=== PATIENT | male | born 1985 | race Caucasian/White ===

== ENCOUNTER 2016-07-16 16:40 | Emergency (ER) | payer SELFPAY ==
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
[2016-07-16] MEDS: CLINDAMYCIN 150 MG CAP PO ONE (17:16)
[2016-07-16] MEDS: Diph,Pert(Acell),Tet Vac 0.5 ML SYR IM ONE (17:17)
== END 2016-07-16 17:36 | disposition home or self-care (01) ==
LOC: ER 16:40
DX: S60.551A Superficial foreign body of right hand, initial encounter (principal); W45.8XXA Other foreign body or object entering through skin, initial encounter; Y92.828 Other wilderness area as the place of occurrence of the external cause; Y99.0 Civilian activity done for income or pay
CPT/HCPCS: 90715; 96372; 99283

== ENCOUNTER 2016-09-07 20:06 | Emergency (ER) | payer BC, OTHER ==
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
[2016-09-07] MEDS ORDERED: HYDROCODONE/APAP 7.5/325MG TABLET PO ONE ×2 (22:38→22:44)
--- NOTE | 2016-09-09 13:10 | RADIOLOGY REPORT ---
EXAM: RIGHT ELBOW HISTORY: PAIN AFTER FALL. TECHNIQUE: Three views of the right elbow were obtained. Comparison: None. FINDINGS: There is a comminuted nondisplaced fracture of the proximal right radius. The fracture extends into the joint space. The bones and joints otherwise are unremarkable. The distal humerus and proximal ulna are unremarkable. IMPRESSION: NONDISPLACED COMMINUTED FRACTURE OF THE RIGHT RADIAL HEAD WITH INTRAARTICULAR EXTENSION. JOB NUMBER: [id number] MTDD
--- NOTE | 2016-09-09 13:12 | RADIOLOGY REPORT ---
EXAM: RIGHT WRIST HISTORY: FALL, PAIN. TECHNIQUE: Four views of the right wrist were obtained. Comparison: None. Encounter: Initial. FINDINGS: No bone or joint abnormality identified. No wrist fracture seen. IMPRESSION: UNREMARKABLE RIGHT WRIST EXAMINATION. JOB NUMBER: [id number] MTDD
== END 2016-09-07 23:21 | disposition home or self-care (01) ==
LOC: ER 20:06
DX: S52.124A Nondisplaced fracture of head of right radius, initial encounter for closed fracture (principal); M25.531 Pain in right wrist; W01.0XXA Fall on same level from slipping, tripping and stumbling without subsequent striking against object, initial encounter; Y92.79 Other farm location as the place of occurrence of the external cause
CPT/HCPCS: 99283

== ENCOUNTER 2018-08-29 08:45 | Emergency (ER) | payer BC, OTHER ==
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
== END 2018-08-29 10:13 | disposition home or self-care (01) ==
LOC: ER 08:45
DX: T59.811A Toxic effect of smoke, accidental (unintentional), initial encounter (principal); J68.9 Unspecified respiratory condition due to chemicals, gases, fumes and vapors; Y92.000 Kitchen of unspecified non-institutional (private) residence as the place of occurrence of the external cause; Y99.0 Civilian activity done for income or pay
CPT/HCPCS: 82375; 99283

== ENCOUNTER 2018-09-10 20:27 | Emergency (ER) | payer BC, OTHER ==
[2018-09-10] MEDS ORDERED: KETOROLAC 30 MG/ML VIAL IVP ONE (20:36)
--- NOTE | 2018-09-10 20:40 | Emergency Department Record ---
History of Present Illness - General Chief complaint: Flank Pain Stated complaint: PAIN IN BACK, RT SIDE Time Seen by Provider: 09/10/18 20:31 Source: Patient Mode of Arrival: Ambulatory Limitations: No limitations - History of Present Illness Initial comments: 33 yo male presents to ED for evaluation of right sided flank pain symptoms that began suddenly 1 hour ago, denies any injury or trauma, and felt normal prior to the onset of his symptoms. Patient reports a family history of kidney stones, denies previous self history of stones. Patient denies fevers, chills, nausea, or vomiting symptoms. Patient does report dysuria symptoms, denies health problems at his baseline. MD Complaint: Dysuria, Other (Flank pain) Onset/Timin -: Hour(s) Location: Right flank Radiation: RLQ Severity: Moderate Quality: Sharp, Stabbing Consistency: Constant Improves with: None Worsens with: None Reports: Dysuria - Related Data Allergies Allergy/AdvReac Type Severity Reaction Status Date / Time No Known Drug Allergies Allergy Verified 08/29/18 08:51 Review of Systems Constitutional: Denies: Chills, Fever, Malaise, Night sweats Eyes: Denies: Eye discharge, Eye pain ENT: Denies: Congestion, Ear pain, Epistaxis Respiratory: Denies: Cough, Dyspnea Cardiovascular: Denies: Chest pain, Dyspnea on exertion Endocrine: Denies: Fatigue, Heat or cold intolerance Gastrointestinal: Reports: Abdominal pain. Denies: Constipation, Nausea, Vomiting Genitourinary: Reports: Dysuria. Denies: Hematuria, Incontinence, Testicular pain, Testicular mass Musculoskeletal: Reports: Back pain. Denies: Arthralgia, Gout, Joint swelling Skin: Denies: Bruising, Change in color Neurological: Denies: Abnormal gait, Confusion, Headache, Seizure Psychiatric: Denies: Anxiety Hematological/Lymphatic: Denies: Anemia, Blood Clots Past Medical History - SOCIAL HISTORY Smoking Status: Never smoker Alcohol Use: Occasional Drug Use: None - RESPIRATORY Hx Respiratory Disorders: No - CARDIOVASCULAR Hx Cardio Disorders: No - NEURO Hx Neuro Disorders: No - GI Hx GI Disorders: No - Hx Genitourinary Disorders: No - ENDOCRINE Hx Endocrine Disorders: No - MUSCULOSKELETAL Hx Musculoskeletal Disorders: No - PSYCH Hx Psych Problems: No - HEMATOLOGY/ONCOLOGY Hx Hematology/Oncology Disorders: No Family Medical History Any Significant Family History?: No Family Hx Comment (NOT TO BE USED IN PLACE OF ITEMS BELOW): denies Physical Exam - General General Appearance: Alert, Oriented x3, Cooperative, Moderate distress (Appears moderately uncomfortable on examination) Limitations: No limitations - Head Head exam: Atraumatic, Normocephalic, Normal inspection Head exam detail: negative: Abrasion, Contusion, Bear's sign, General tenderness, Hematoma, Laceration - Eye Eye exam: Normal appearance. negative: Conjunctival injection, Periorbital swelling, Periorbital tenderness, Scleral icterus - ENT Ear exam: negative: Auricular hematoma, Auricular trauma Nasal Exam: negative: Active bleeding, Discharge, Dried blood, Foreign body Mouth exam: negative: Drooling, Laceration, Muffled voice, Tongue elevation - Neck Neck exam: Normal inspection. negative: Meningismus, Tenderness - Respiratory Respiratory exam: Normal lung sounds bilaterally. negative: Rales, Respiratory distress, Rhonchi, Stridor - Cardiovascular Cardiovascular Exam: Regular rate, Normal rhythm, Normal heart sounds - GI/Abdominal GI/Abdominal exam: Soft. negative: Rebound, Rigid, Tenderness - Rectal Rectal exam: Deferred - exam: Deferred - Extremities Extremities exam: Normal inspection. negative: Pedal edema, Tenderness - Back Back exam: Reports: CVA tenderness (R). Denies: CVA tenderness (L) - Neurological Neurological exam: Alert, Normal gait, Oriented X3 - Psychiatric Psychiatric exam: Normal affect, Normal mood - Skin Skin exam: Normal color. negative: Abrasion Type of lesion: negative: abrasion Course Vital Signs 09/10/18 20:34 Temperature 98.2 F Pulse Rate [ 67 Right] Respiratory 20 Rate Blood Pressure 146/94 [Left Arm] Pulse Ox 98 - Reevaluation(s) Reevaluation #1: 09/10/18 22:25 Laboratory studies were reviewed and appears grossly unremarkable for an acute process. UA demonstrates: RBC 3-6 WBC None Epithelial cells: None 4+ Amorphous sediment Reevaluation #2: 09/10/18 23:14 CT Abdomen/Pelvis: 3 mm calculus right UVJ with mild hydronephrosis Patient was updated on his CT imaging result c/w kidney stone, reports that his pain symptoms are significantly improved. Will place referral for urology for next week, recommended Ibuprofen 600-800 mg every 6 hours as needed for pain. Patient appears stable for discharge with urologic follow-up next Friday. Medical Decision Making - Lab Data Result diagrams: 09/10/18 20:45 09/10/18 20:45 Disposition Disposition: Discharge Clinical Impression: Ureteral calculus, right Disposition: Home, Self-Care Condition: (2) Stable Instructions: Kidney Stones (ED) Additional Instructions: Return to ED if your symptoms worsen or if you have any concerns. Ibuprofen as directed. Drink plenty fluids/rest. Follow-up with your family doctor in 3-5 days as directed. Referrals: Arnie Ray M.D. [MEDICAL DOCTOR] - [facility] [Provider Group] Forms: Patient Portal Access Time of Disposition: 23:04 Quality - Quality Measures Quality Measures: N/A - Blood Pressure Screening Does Patient Have Any of the Following: No Blood Pressure Classification: Pre-Hypertensive BP Reading Systolic Measurement: 122 Diastolic Measurement: 76 Screening for High Blood Pressure: < Pre-Hypertensive BP, F/U Documented > [G8950] Pre-Hypertensive Follow-up Interventions: Referral to alternative/primary care provider.
[2018-09-10] MEDS ORDERED: 0.9 % SODIUM CHLORIDE 1000ML 1,000 ML IV SCH (20:45)
[2018-09-10 20:56] LABS: URINE APPEARANCE SL CLOUDY; URINE BILIRUBIN NEGATIVE (NEGATIVE); URINE BLOOD TRACE-I (NEGATIVE); URINE COLOR YELLOW; URINE GLUCOSE (UA) NEGATIVE (NEGATIVE); URINE KETONE NEGATIVE (NEGATIVE); URINE LEUKOCYTE ESTERASE NEGATIVE (NEGATIVE); URINE NITRITE NEGATIVE (NEGATIVE); URINE PROTEIN NEGATIVE (NEGATIVE); URINE UROBILINOGEN 0.2 E.U./dL (0.20 - 1.00)
[2018-09-10 20:57] LABS: BASO % 0.4 % (0-6); EOS % 2.5 % (0-6); GRAN % 38.2 % (47-80); HEMOGLOBIN 14.8 gm/dl (14.0-18.0); LYMPH % 48.2 % (16-45); MEAN CELL VOLUME 86.6 fl (81-97); MEAN CORPUSCULAR HEMOGLOBIN 29.1 pg (27-33); MEAN CORPUSCULAR HGB CONC 33.6 g/dl (32-36); MEAN PLATELET VOLUME 9.9 fl (7.4-10.4); MONO % 10.7 % (0-9); PLATELET COUNT 334 K/uL (130-400); RED BLOOD COUNT 5.08 M/uL (4.40-5.70); WHITE BLOOD COUNT W/O DIFF 6.8 K/uL (4.2-12.2)
[2018-09-10 21:04] LABS: URINE AMORPHOUS SEDIMENT 4+; URINE EPITHELIAL CELLS NONE SEEN (FEW); URINE WBC NONE SEEN (0-2/hpf)
[2018-09-10 21:05] LABS: BLOOD UREA NITROGEN 16 mg/dL (6-20); CREATININE 1.1 mg/dL (0.7-1.2); EST GLOMERULAR FILTRATION RATE > 60 mL/min; TOTAL PROTEIN 7.8 g/dL (6.6-8.7)
[2018-09-10 21:07] LABS: GLUCOSE,RANDOM 112 mg/dL (74-109)
[2018-09-10 21:10] LABS: ALB/GLOB RATIO 1.4 (1.1-1.8); ALBUMIN 4.6 g/dL (4.0-5.0); ALKALINE PHOSPHATASE 110 U/L (40-129); ALT/SGPT 76 U/L (<41); AST/SGOT 37 U/L (10.0-50.0)
--- NOTE | 2018-09-12 22:07 | CT SCAN REPORT ---
EXAM: CT SCAN ABDOMEN/PELVIS WO CONTRAST HISTORY: SUDDEN ONSET OF RIGHT FLANK PAIN. URINARY FREQUENCY. TECHNIQUE: Routine thin-collimation helical CT examination of the abdomen and pelvis is performed without oral or intravenous contrast administration. Lack of oral and IV contrast utilization limits evaluation of the bowel and solid viscera, respectively. COMPARISON: None. FINDINGS: There is minimal dependent atelectasis in each lung base. The visualized lung bases are otherwise clear. No pleural or pericardial effusion. The heart is not enlarged. There is a borderline enlarged low paraesophageal lymph node present. The liver, spleen, pancreas, and adrenal glands are normal in appearance. The gallbladder is unremarkable and no biliary ductal dilatation is seen. The kidneys are normal in size, position, and are smoothly marginated. No definite nephrolithiasis. There is a questionable hypodense mass within the anteromedial upper left kidney measuring 13 mm. This area has fluid density and this is likely a cyst. No other renal mass noted. No gross hydronephrosis, though the right renal collecting system pelvis is borderline prominent. There is a 3 mm calculus projecting into the urinary bladder lumen near the vesicoureteral junction. It is indeterminate whether this is an obstructing calculus or recently passed stone into the bladder lumen. No other ureteral calculus. No other urinary bladder abnormality. No gross intraabdominal nor retroperitoneal lymphadenopathy. Several small nonenlarged mesenteric lymph nodes are scattered throughout the abdomen. These are nonspecific, though likely reactive. The visualized vasculature is normal in appearance. No pelvic mass nor lymphadenopathy. No free pelvic fluid. No gross bowel dilatation nor bowel wall thickening. The appendix is visualized and normal in appearance. No suspicious lytic or blastic bone lesion. There is a lucent lesion with thin sclerotic margins in the medial left iliac bone. This measures 1.4 x 1.0 cm. This has a nonaggressive, likely benign appearance. No other lytic or blastic bone lesion. IMPRESSION: 1. A 3 MM CALCIFICATION PROJECTING INTO THE URINARY BLADDER LUMEN NEAR THE RIGHT VESICOURETERAL JUNCTION. THERE IS ASSOCIATED BORDERLINE RIGHT HYDRONEPHROSIS. IT IS INDETERMINATE WHETHER THIS IS AN OBSTRUCTING CALCULUS OR A RECENTLY PASSED MOBILE CALCULUS WITHIN THE URINARY BLADDER. 2. SMALL HYPODENSE MASS IN THE MEDIAL UPPER LEFT KIDNEY MEASURING 1.3 CM IN DIAMETER. THIS IS NONSPECIFIC BUT LIKELY A CYST. 3. NORMAL APPENDIX. 4. A 1.4 X 1.0 CM LUCENT LESION WITH THIN SCLEROTIC MARGINS IN THE MEDIAL LEFT ILIAC BONE. THIS HAS A NONAGGRESSIVE, LIKELY BENIGN APPEARANCE. JOB NUMBER: [id number] [facility]
== END 2018-09-10 23:12 | disposition home or self-care (01) ==
LOC: ER 20:27
DX: N13.2 Hydronephrosis with renal and ureteral calculous obstruction (principal); R30.0 Dysuria; R10.31 Right lower quadrant pain
CPT/HCPCS: 74176; 80053; 81001; 85025; 96361; 96374; 99284; J1885; J7030